=== PATIENT | female | born 1955 | race Hispanic/Latino ===

== ENCOUNTER → 2019-07-22 | Day surgery (SDC) | payer OTHER ==
[~2019-07-22] MED LIST: FENTANYL CITRATE/PF 100MCG/2 ML INJ ONE; GLUCAGON FOR INJ 1 MG VIAL ONE; HYOSCYAMINE 0.125 MG TAB ONE; IRBESARTAN-HCT1 EACH PO; LIDOCAINE HCL 2% LOCAL INJ 5 ML SDV VIAL INJ ONE; METFORMIN HCL500 MG PO; MIDAZOLAM HCL 2 MG/2 ML VIAL ONE; PROPOFOL IV EMULSION 10 MG/ML 50 ML VIAL ONE
[2019-07-22 20:20] VITALS: BP 132/65
--- NOTE | 2019-07-23 01:22 | Operative Report ---
DATE OF PROCEDURE: 07/22/2019 SURGEON: Nitin Leonard MD PROCEDURE: EGD with biopsies and colonoscopy with polypectomy. INDICATIONS FOR EGD: Heartburn, nausea, and bloating. INDICATIONS FOR COLONOSCOPY: Colorectal cancer screening. MEDICATIONS: The patient was done under MAC, please see anesthesiologist's note. PROCEDURE IN DETAIL: With the patient in left lateral decubitus position, a flexible fiberoptic Olympus gastroscope was introduced into the esophagus under direct visualization without any difficulty. There was some patchy erythema noted in distal esophagus. Approximately 8 mm submucosal nodule was noted just above the GE junction that was biopsied. The scope was then advanced with ease into the stomach and some serpiginous ulcerations were noted in the antrum with the largest approximately 1.5 cm in size with stigmata of recent hemorrhage. Biopsies were obtained. Mucosa overlying the antrum and the body revealed some diffuse erythema and [id number] edema. Biopsies were obtained and sent to stain for H. pylori. The pylorus was of normal contour and shape. It was intubated with ease and the scope was advanced all the way to the second portion of the duodenum. Biopsies were obtained from the proximal second portion and duodenal bulb to rule out sprue. The scope was then withdrawn back into the stomach and retroflexed mucosa overlying the fundus and the cardia appeared to be within normal limits. The scope was then straightened out. It was subsequently withdrawn. The patient tolerated the procedure well. IMPRESSION: 1. Distal esophagitis, mild. 2. Approximately 8 mm submucosal nodule just above the GE junction, biopsied. 3. Gastritis, biopsied. Biopsies sent to stain for Helicobacter pylori. 4. Gastric ulcers, antrum with the largest approximately 1.5 cm in size with stigmata of recent hemorrhage. Biopsies were obtained. 5. Rule out sprue. PLAN: Follow up histology. Initiate Protonix 40 mg one p.o. q.a.m. before meals. The patient will need a repeat EGD after two months of therapy to document healing. The patient was then turned around after adequate lubrication of the anal canal and flexible fiberoptic Olympus colonoscope was inserted into the rectum with ease and advanced all the way to the cecum. Prep overall was suboptimal. One polyp was hot snared from the cecum. The scope was then withdrawn slowly and two polyps were hot snared from the ascending colon with one polypectomy site hemoclipped x2. Three polyps were hot snared from the transverse colon. One polyp was hot snared. One polyp was hot biopsied from the descending colon and one polypectomy site was hemoclipped x1. Diverticular disease was noted to involve the sigmoid colon and one polyp was hot biopsied from the sigmoid colon. One polyp was hot biopsied from the rectum. The scope was then retroflexed into the distal rectum and small internal hemorrhoids were noted and none of which was actively bleeding. The scope was then straightened out. It was subsequently withdrawn and the patient tolerated the procedure well. IMPRESSION: 1. Suboptimal prep, but visualization was fair. 2. Cecal polyps, removed per snare electrocautery. 3. Ascending colon polyps x2, removed per snare electrocautery and one site was hemoclipped x2. 4. Transverse colon polyps x3, removed per snare electrocautery. 5. Descending colon polyps x2, one hot biopsied and one removed per snare electrocautery and site was hemoclipped x1. 6. Diverticulosis. 7. Sigmoid colon polyp, hot biopsied. 8. Rectal polyp x1, hot biopsied. 9. Internal hemorrhoids, none actively bleeding. PLAN: Follow up histology. Initiate high-fiber, low-fat diet. Initiate high-fiber supplement. The patient might benefit from a followup colonoscopy in one year. A total of 10 polyps were removed. Nitin Leonard MD [facility] [place]IL /[id number] cc: Odell Giles MD
== END | disposition home or self-care (01) ==
LOC: OR 14:45
PROVIDERS: ATTEND Internal Medicine Gastroenterology
DX: K59.09 Other constipation (principal); D12.3 Benign neoplasm of transverse colon; D12.2 Benign neoplasm of ascending colon; K62.1 Rectal polyp; K25.9 Gastric ulcer, unspecified as acute or chronic, without hemorrhage or perforation; K29.80 Duodenitis without bleeding; K29.70 Gastritis, unspecified, without bleeding; B96.81 Helicobacter pylori [H. pylori] as the cause of diseases classified elsewhere; K20.9 Esophagitis, unspecified; K22.8 Other specified diseases of esophagus; I49.3 Ventricular premature depolarization; I10 Essential (primary) hypertension; E11.9 Type 2 diabetes mellitus without complications; F41.9 Anxiety disorder, unspecified; Z01.810 Encounter for preprocedural cardiovascular examination; Z79.84 Long term (current) use of oral hypoglycemic drugs; Z80.0 Family history of malignant neoplasm of digestive organs
CPT/HCPCS: 43239; 45384; 45385; 93005; J1610; J2001; J2250; J2704; J3010; 45378